=== PATIENT | female | born 1940 | race Caucasian/White ===

== ENCOUNTER 2016-09-14 07:15 | Inpatient (IN) | payer BC, OTHER ==
[2016-09-09 09:32] LABS: HEMATOCRIT 38.2 % (36.0-48.0); HEMOGLOBIN 12.5 g/dL (12.0-16.0)
[2016-09-09 09:54] LABS: BUN (BLOOD UREA NITROGEN) 8 MG/DL (6-23); CALCIUM, SERUM 8.7 MG/DL (8.5-10.4); CHLORIDE, SERUM 105 MMOL/L (96-112); CO2 (CARBON DIOXIDE) 28 MMOL/L (24-34); CREATININE 0.89 MG/DL (0.55-1.02); GFR AFRICAN AMERICAN 73 ML/MIN (>=60); GFR NON AFRICAN AMERICAN 63 ML/MIN (>=60); GLUCOSE, SERUM 77 MG/DL (60-99); POTASSIUM, SERUM 5.6 MMOL/L (3.5-5.3); SODIUM, SERUM 140 MMOL/L (135-148)
--- NOTE | ~2016-09-14 | OP ---
Record Of Operation [facility] [address] [place]. [address] NAME: BARBARA HEATH : 42 STATUS : ADM IN PAT#: [id number] AGE: 76 ADM/REG DATE : 09/14/16 MR#: [id number] REPORT SERV DATE: 09/14/16 DICTATED BY: SHASTA ZACARIAS JR. DATE: 09/14/16 REPORT STATUS : Draft TRANSCRIBED BY: MODL DATE: 09/14/16 DATE OF PROCEDURE: 09/14/2016 PREOPERATIVE DIAGNOSIS: Right carotid stenosis. POSTOPERATIVE DIAGNOSIS: Right carotid stenosis. OPERATION: Right carotid endarterectomy with bovine patch angioplasty. SURGEON: Dr. Shasta Zacarias. VASCULAR FELLOW: Dr. Mary Urbina. HISTORY: This is a 76-year-old white female, followed to the office with a progressive right carotid stenosis. The left carotid has been done twice, once by Dr. Lan, and once by ut. DESCRIPTION OF PROCEDURE: The patient was placed on the operating room table. She underwent general endotracheal anesthetic. The right side of the neck was prepped and draped in the usual sterile manner. Standard right-sided sternocleidomastoid incision was made. Dissection was carried on the muscles reflected laterally. The facial vein was identified and clamped, cut, and tied. The underlying carotid bifurcation was then identified. The patient was heparinized early with 4000 units of heparin. The CCA, ICA, and ECA were carefully dissected out away from the bifurcation trying to prevent embolization. All branches of the carotid artery were then clamped. Arteriotomy was then done between the CCA and the ICA. After cutting high enough on the ICA, an 8-Icelandic straight Proctor shunt was placed in the ICA with excellent back bleeding. The other end was placed in the CCA. The shunt stayed in place for virtually the entire operation. The endarterectomy was started near the CCA, it was carried up to the ECA, and then to the ICA. The plaque feathered nicely in its distal aspects. Fine forceps was used to get all smooth muscle floaters. We elected to patch the bifurcation open using a piece of bovine pericardial patch material sewn in place as an onlay patch using 6-0 Prolene suture. The shunt was removed before finishing the suture line. Blood was allowed to run up to the ECA first. There were good Doppler signals distally. Heparin was not reversed. The neck was closed in layers with 3-0 Vicryl deep and 4-0 Vicryl in the skin. The patient tolerated the procedure well, taken back to the recovery room in fair condition. There were no intraoperative complications. ESTIMATED BLOOD LOSS: Negligible. DF/SLICK Shasta Zacarias Jr., M.D. Record Of Operation [address] [address] NAME: BARBARA HEATH : 42 STATUS : ADM IN [facility]#: [id number] AGE: 76 ADM/REG DATE : 09/14/16 MR#: [id number] REPORT SERV DATE: 09/14/16 DICTATED BY: SHASTA ZACARIAS JR. DATE: 09/14/16 REPORT STATUS : Draft TRANSCRIBED BY: SLICK DATE: 09/14/16 / [id number] CC: Shasta Zacarias Jr., M.D.
[~2016-09-14 07:15] MED LIST: ASAB PO; BINOSTO70 MG PO; COMBIVENT RESPIM4 GM INH; COZ25 PO; DUONEB INH; EPIPEN0.3 IM; NEUR300 PO; NEUR600 PO; PLAVIX PO; PRAVACHOL80 MG PO; PROAIRRESP INH; SINGULAIR1 PO; SYN.025B PO; T PO; TOPXL25 PO; VOLT75 PO; XANAX1 MG PO; ZANTAC150 MG PO; ZOLOFT25 MG PO
[2016-09-14 11:20] LABS: HEMOGLOBIN 10.1 g/dL (12.0-16.0)
[2016-09-14 11:22] LABS: HEMATOCRIT 31.5 % (36.0-48.0)
[2016-09-15] MEDS ORDERED: PCET PO (08:35)
== END 2016-09-15 10:33 | disposition home or self-care (01) | DRG 38 ==
LOC: SDC/OF 07:15 → PACU 11:10 → 2SO 14:42
PROVIDERS: Surgery
PROC: 03CK0ZZ Extirpation of Matter from Right Internal Carotid Artery, Open Approach (ICD-10-PCS; 2016-09-14)
PROC: 03CM0ZZ Extirpation of Matter from Right External Carotid Artery, Open Approach (ICD-10-PCS; 2016-09-14)
PROC: 03CH0ZZ Extirpation of Matter from Right Common Carotid Artery, Open Approach (ICD-10-PCS; principal; 2016-09-14 08:45)
DX: I65.23 Occlusion and stenosis of bilateral carotid arteries (principal); I42.9 Cardiomyopathy, unspecified; Z99.81 Dependence on supplemental oxygen; J44.9 Chronic obstructive pulmonary disease, unspecified; I10 Essential (primary) hypertension; I25.10 Atherosclerotic heart disease of native coronary artery without angina pectoris; G47.33 Obstructive sleep apnea (adult) (pediatric); M79.7 Fibromyalgia; Z88.0 Allergy status to penicillin; Z88.5 Allergy status to narcotic agent; Z98.890 Other specified postprocedural states
CPT/HCPCS: 80048; 84132; 85014; 85018; 87641; 88304; 88311; 93005; A9270-GY; C1768; J0690; J2250; J2370; J2405; J2710; J3010